=== PATIENT | male | born 1975 | race African-American/Black ===

== ENCOUNTER 2018-05-16 10:09 | Emergency (ER) | payer SELFPAY ==
[~2018-05-16] VITALS: Ht 162.6 cm; Wt 77.1 kg
[2018-05-16] MEDS ORDERED: PENI500T PO (11:02)
--- NOTE | 2018-05-16 11:03 | PHYS DOC ---
Past Medical History Past Medical History: No Pertinent History Past Surgical History: Cholecystectomy Additional Past Surgical Histo: R SHOULDER RX, R WRIST Alcohol Use: None Drug Use: None Adult General Chief Complaint Chief Complaint: DENTAL PROBLEM HPI HPI 42-year-old male with dental pain in the left upper and lower molar teeth. Started 4 months ago. Throbbing nonradiating intermittent pain. He denies drooling tongue swelling neck swelling difficulty breathing or difficulty swallowing. Otherwise denies fevers. Review of systems is negative for chest pain shortness of breath fevers or chills. All other review of systems is negative unless otherwise noted in history of present illness. ED course: 42-year-old male with dental pain. 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 Poor dentition. We will give the patient oral penicillin to follow-up with his dentist today or tomorrow.The patient has been examined and was not found to have an emergency medical condition. The patient was then discharged home in stable condition to follow up. They were to return if their symptoms worsened or if they were concerned for any reason. They were also instructed to return to the emergency department if they were unable to get the recommended and appropriate follow-up. [id number] discharge instructions and return precautions were given. Patient's questions were answered to their satisfaction. Patient is comfortable with plan. Review of Systems Review of Systems SEE ABOVE. Physical Exam Physical Exam SEE ABOVE Constitutional: Well developed, well nourished, no acute distress, non-toxic appearance. [] HENT: Normocephalic, atraumatic, bilateral external ears normal, oropharynx moist, no oral exudates, nose normal. []Examination of the teeth shows obvious large cavity in the left lower molar. Otherwise poor dentition generally. No abscesses are fluctuant masses present. Tongue normal. No peritonsillar abscess. Normal range of motion of the neck. Eyes: PERRLA, EOMI, conjunctiva normal, no discharge. [] Neck: Normal range of motion, no tenderness, supple, no stridor. [] Cardiovascular:Heart rate regular rhythm, no murmur [] Lungs & Thorax: Bilateral breath sounds clear to auscultation [] Abdomen: Bowel sounds normal, soft, no tenderness, no masses, no pulsatile masses. [] Skin: Warm, dry, no erythema, no rash. [] Back: No tenderness, no CVA tenderness. [] Extremities: No tenderness, no cyanosis, no clubbing, ROM intact, no edema. [] Neurologic: Alert and oriented X 3, normal motor function, normal sensory function, no focal deficits noted. [] Psychologic: Affect normal, judgement normal, mood normal. [] Current Patient Data Vital Signs Vital Signs Date Time Temp Pulse Resp B/P (MAP) Pulse Ox O2 Delivery O2 Flow Rate FiO2 05/16/18 10:16 98.0 85 20 147/98 (114) 100 Room Air 98.0 EKG EKG [] Radiology/Procedures Radiology/Procedures [] Course & Med Decision Making Course & Med Decision Making Pertinent Labs and Imaging studies reviewed. (See chart for details) [] Dragon Disclaimer Dragon Disclaimer This electronic medical record was generated, in whole or in part, using a voice recognition dictation system. Departure Departure Impression: Primary Impression: Pain, dental Disposition: HOME, SELF-CARE Condition: STABLE Referrals: NO PCP (PCP) Patient Instructions: Dental Caries Additional Instructions: Thank you for allowing us to participate in your care today. Return to the emergency department you have any new or worsening symptoms, or if you are concerned for any reason. Return to emergency department if you have any new or concerning symptoms including but not limited to fever, chills, nausea, vomiting, intractable pain, any new rashes, chest pain, shortness of air , uncontrolled bleeding, difficulty breathing, and/or vision loss. Follow up with dentist today or tomorrow. Call your Primary Doctor tomorrow and inform them of your visit today. If you do not have a primary care provider we are happy to provide you with a list of our primary care providers contact information. This condition should be evaluated by your primary care physician and any recommended consulting services for continued management within 2-3 days after discharge. If at any time, you are having difficulty getting into your primary care doctor or a specialist, return to the emergency department. Scripts Penicillin V Potassium (PENICILLIN V POTASSIUM) 500 Mg Tablet 1 TAB PO BID, #20 TAB Prov: MISHEL TORRES MD 05/16/18 MISHEL TORRES MD May 16, 2018 11:03
[2018-05-16 11:22] VITALS: BP 137/83
== END 2018-05-16 11:22 | disposition home or self-care (01) ==
LOC: ER 10:09
DX: K08.89 Other specified disorders of teeth and supporting structures (principal); Z90.49 Acquired absence of other specified parts of digestive tract
CPT/HCPCS: 99283

== ENCOUNTER 2018-07-17 03:09 | Emergency (ER) | payer OTHER ==
[~2018-07-17] VITALS: Ht 162.6 cm; Wt 77.1 kg
[~2018-07-17 03:09] MED LIST: PENI500T PO
[2018-07-17 03:10] VITALS: BP 146/66
[2018-07-17] MEDS ORDERED: SULF1TAB24 PO (03:31)
[2018-07-17] MEDS ORDERED: LIDOCAINE 2% PF 2ML VIAL. INJ ONE (03:45)
[2018-07-17] MEDS ORDERED: CEPH500C PO (03:49)
[2018-07-17] MEDS ORDERED: HYDROcodone/APAP 5/325MG 1 TAB TABLET PO ONE (04:00)
[2018-07-17] MEDS ORDERED: SMZ/TMP 800/160MG TABLET. PO ONE (04:00)
--- NOTE | 2018-07-17 04:30 | PHYS DOC ---
Past Medical History Past Medical History: No Pertinent History Past Surgical History: Cholecystectomy Additional Past Surgical Histo: R SHOULDER RX, R WRIST Alcohol Use: None Drug Use: None Adult General Chief Complaint Chief Complaint: WOUND CHECK [facility] HPI Patient is a 42 year old m p/w abscess to abdomen x two days, thinks maybe spider bite not sure. no fever feels lightehaded at times. Review of Systems Review of Systems Constitutional: Denies fever or chills [] Eyes: Denies change in visual acuity, redness, or eye pain [] HENT: Denies nasal congestion or sore throat [] Respiratory: Denies cough or shortness of breath [] Cardiovascular: No additional information not addressed in HPI [] GI: Denies abdominal pain, nausea, vomiting, bloody stools or diarrhea [] : Denies dysuria or hematuria [] Musculoskeletal: Denies back pain or joint pain [] Integument: Denies rash or skin lesions [] Neurologic: Denies headache, focal weakness or sensory changes [] Endocrine: Denies polyuria or polydipsia [] All other systems were reviewed and found to be within normal limits, except as documented in this note. Current Medications Current Medications Current Medications Medications (Trade) Dose Ordered Sig/Norma Start Time Stop Time Status Last Admin Dose Admin Acetaminophen/ Hydrocodone Bitart (Lortab 5/325) 2 tab 1X ONCE 07/17/18 04:00 07/17/18 04:01 DC 07/17/18 04:00 2 TAB Lidocaine HCl (Xylocaine-Mpf 2% Vial) 4 ml 1X ONCE 07/17/18 03:45 07/17/18 03:47 DC 07/17/18 04:05 4 ML Trimethoprim/ Sulfamethoxazole (Bactrim Ds) 2 tab 1X ONCE 07/17/18 04:00 07/17/18 04:01 DC 07/17/18 04:00 2 TAB Allergies Allergies Allergies Coded Allergies Type Severity Reaction Last Updated Verified No Known Drug Allergies 07/17/18 No Physical Exam Physical Exam Constitutional: Well developed, well nourished, no acute distress, non-toxic appearance. [] HENT: Normocephalic, atraumatic, bilateral external ears normal, oropharynx moist, no oral exudates, nose normal. [] Eyes: PERRLA, EOMI, conjunctiva normal, no discharge. [] Neck: Normal range of motion, no tenderness, supple, no stridor. [] Pulmonary: Normal respiratory effort no increased work of breathing no obvious chest wall trauma Abdomen: Bowel sounds normal, soft, no actual abdominal tenderness, no masses, no pulsatile masses. [] Skin: There is a 4 x 5 cm of erythema with induration and fluctuance in the lower abdominal area it appears superficial but palpation Back: No tenderness, no CVA tenderness. [] Extremities: No tenderness, no cyanosis, no clubbing, ROM intact, no edema. [] Neurologic: Alert and oriented X 3, normal motor function, normal sensory function, no focal deficits noted. [] Psychologic: Affect normal, judgement normal, mood normal. [] Current Patient Data Vital Signs Vital Signs Date Time Temp Pulse Resp B/P (MAP) Pulse Ox O2 Delivery O2 Flow Rate FiO2 07/17/18 04:00 16 97 Room Air 07/17/18 03:10 99.7 104 146/66 (92) 99.7 EKG EKG [] Radiology/Procedures Radiology/Procedures [] Course & Med Decision Making Course & Med Decision Making Pertinent Labs and Imaging studies reviewed. (See chart for details) []Procedure note incision and drainage verbal consent was obtained lidocaine was used for anesthesia 10 blade was used to centimeter incision approximately 5 -10 ML's of pus returned loculations and explored wound was packed and dressing was applied wound care instructions were provided advise come back in 2 days for recheck given the size. bactrim Keflex were given prescription as well as pain control. Dragon Disclaimer Dragon Disclaimer This electronic medical record was generated, in whole or in part, using a voice recognition dictation system. Departure Departure Impression: Primary Impression: Abscess Disposition: 01 HOME, SELF-CARE Condition: STABLE Patient Instructions: Abscess, [id number] Scripts Cephalexin (CEPHALEXIN) 500 Mg Capsule 1 CAP PO TID, #30 CAP Prov: PRIYANKA MORRIS MD 07/17/18 Sulfamethoxazole/Trimethoprim (BACTRIM DS TABLET) 1 Each Tablet 1 TAB PO BID, #14 TAB Prov: PRIYANKA MORRIS MD 07/17/18 PRIYANKA MORRIS MD Jul 17, 2018 04:30
== END 2018-07-17 04:35 | disposition home or self-care (01) ==
LOC: ER 03:09
DX: L02.211 Cutaneous abscess of abdominal wall (principal); Z90.49 Acquired absence of other specified parts of digestive tract
CPT/HCPCS: 10060; 99283; J2001